=== PATIENT | male | born 1975 | race Caucasian/White ===

== ENCOUNTER → 2016-09-16 | Outpatient (REF) | payer OTHER ==
[2016-09-16 18:08] LABS: ALBUMIN 4.5 GM/DL (3.2-5.2); ALBUMIN/GLOBULIN RATIO 1.41 (1.00-1.93); ALKALINE PHOSPHATASE 93 U/L (45-117); ALT/SGPT 79 U/L (12-78); ANION GAP 9 MEQ/L (8-16); AST/SGOT 38 U/L (15-37); BILIRUBIN,DIRECT 0.2 MG/DL (0.0-0.2); BILIRUBIN,TOTAL 0.7 MG/DL (0.2-1.0); BLOOD UREA NITROGEN 10 MG/DL (7-18); CALCIUM LEVEL 9.7 MG/DL (8.5-10.1); CARBON DIOXIDE LEVEL 29 MEQ/L (21-32); CHLORIDE LEVEL 102 MEQ/L (98-107); CREATININE FOR GFR 1.01 MG/DL (0.70-1.30); GLOMERULAR FILTRATION RATE > 60.0 (>60); GLUCOSE, FASTING 105 MG/DL (70-105); SODIUM LEVEL 140 MEQ/L (136-145); TOTAL PROTEIN 7.7 GM/DL (6.4-8.2)
== END ==
LOC: M LAB REF 16:40
PROVIDERS: ATTEND Surgery
DX: J01.00 Acute maxillary sinusitis, unspecified (principal); I10 Essential (primary) hypertension

== ENCOUNTER → 2017-08-02 | Outpatient (REF) | payer OTHER ==
[2017-08-02 19:43] LABS: INFLUENZA A AMPLIFICATION NEGATIVE (NEGATIVE); INFLUENZA B AMPLIFICATION NEGATIVE (NEGATIVE)
== END ==
LOC: M SFHCLERA 15:11
DX: Z20.828 Contact with and (suspected) exposure to other viral communicable diseases (principal)

== ENCOUNTER 2020-11-19 08:13 | Emergency (ER) | payer OTHER ==
[~2020-11-19] VITALS: Ht 172.7 cm; Wt 79.6 kg
[2020-11-19] MEDS ORDERED: LISI20TA33 (08:24)
[2020-11-19] MEDS ORDERED: SIMV10TA21 (08:24)
--- NOTE | 2020-11-19 10:27 | REP ---
INDICATION: trauma, left upper anterior ribs COMPARISON: None. TECHNIQUE: Frontal view of the chest with four views of the left hemithorax. FINDINGS: Frontal view of the chest demonstrates no acute cardiopulmonary process, contusion, effusion, or pneumothorax. Multiple views of the hemithorax demonstrates no acute rib fracture/injury or pathology. IMPRESSION: Normal rib series. No obvious rib fracture or pathology. <Electronically signed by Roger Parker > 11/19/20 1024
[2020-11-19 10:52] VITALS: BP 170/100
[2020-11-19] MEDS ORDERED: NAPR-885 PO (11:08)
== END 2020-11-19 11:17 | disposition home or self-care (01) ==
LOC: M ED 08:13
DX: S20.212A Contusion of left front wall of thorax, initial encounter (principal); W01.10XA Fall on same level from slipping, tripping and stumbling with subsequent striking against unspecified object, initial encounter; Y92.89 Other specified places as the place of occurrence of the external cause; Y93.9 Activity, unspecified; Y99.0 Civilian activity done for income or pay; I10 Essential (primary) hypertension; E78.5 Hyperlipidemia, unspecified; J30.2 Other seasonal allergic rhinitis

== ENCOUNTER → 2021-08-07 | Outpatient (CLI) | payer BC, OTHER ==
[~2021-08-07] MED LIST: CAPE1TAB2 PO; GNPTAB35 PO; KETO10TAB PO; LISI20TA33; LOPE1CAP5 PO; NAPR-885 PO; ONDA8TAB8 PO; PROC10TA5 PO; SIMV10TA21; SIMV20TA22 PO
== END ==
LOC: M ONCR 12:45
PROVIDERS: ATTEND General Practice
DX: C20 Malignant neoplasm of rectum (principal); J30.89 Other allergic rhinitis; Z79.899 Other long term (current) drug therapy; Z92.21 Personal history of antineoplastic chemotherapy

== ENCOUNTER 2021-09-14 10:22 | Outpatient (RCR) | payer BC | END 2021-09-24 | LOC: M ONCR 10:22 | PROVIDERS: ATTEND General Practice | DX: C20 Malignant neoplasm of rectum (principal) ==

== ENCOUNTER 2021-10-23 09:50 | Outpatient (RCR) | payer BC | END 2021-10-24 | PROVIDERS: ATTEND General Practice | DX: C20 Malignant neoplasm of rectum (principal) ==

== ENCOUNTER 2021-11-04 09:48 | Outpatient (RCR) | payer BC | END 2021-11-24 | LOC: M ONCR 09:48 | PROVIDERS: ATTEND General Practice | DX: C20 Malignant neoplasm of rectum (principal) ==

== ENCOUNTER → 2022-05-12 | Outpatient (CLI) | payer BC | LOC: M ONCR 09:52 | PROVIDERS: ATTEND General Practice | DX: C20 Malignant neoplasm of rectum (principal); J30.2 Other seasonal allergic rhinitis; Z79.899 Other long term (current) drug therapy; Z92.21 Personal history of antineoplastic chemotherapy; Z92.3 Personal history of irradiation; Z93.3 Colostomy status ==

== ENCOUNTER → 2023-08-03 | Outpatient (CLI) | payer BC | LOC: M PLAIMG 11:27 | PROVIDERS: ATTEND Internal Medicine | DX: C20 Malignant neoplasm of rectum (principal); K59.00 Constipation, unspecified; K92.89 Other specified diseases of the digestive system ==

== ENCOUNTER → 2023-08-03 | Outpatient (CLI) | payer BC ==
[~2023-08-03] MED LIST changes: +GASTROGRAFIN SOLUTION 30ML ONE; +ISOVUE-370 76% 100ML VIAL ONE
== END ==
LOC: M PLAIMG 11:28
PROVIDERS: ATTEND Nurse Practitioner Family
DX: C20 Malignant neoplasm of rectum (principal); R91.1 Solitary pulmonary nodule
CPT/HCPCS: 71260; Q9963; Q9967

== ENCOUNTER → 2023-08-05 | Outpatient (CLI) | payer BC ==
[~2023-08-05] MED LIST changes: -GASTROGRAFIN SOLUTION 30ML ONE; -ISOVUE-370 76% 100ML VIAL ONE
== END ==
LOC: M ONCR 08:23
PROVIDERS: ATTEND General Practice
DX: C20 Malignant neoplasm of rectum (principal); Z71.2 Person consulting for explanation of examination or test findings; Z79.1 Long term (current) use of non-steroidal anti-inflammatories (NSAID); Z79.899 Other long term (current) drug therapy; Z92.21 Personal history of antineoplastic chemotherapy; Z92.3 Personal history of irradiation

== ENCOUNTER → 2023-11-01 | Outpatient (CLI) | payer BC ==
[~2023-11-01] MED LIST changes: +GASTROGRAFIN SOLUTION 30ML ONE; +ISOVUE-370 76% 100ML VIAL ONE
== END ==
LOC: M PLAIMG 07:59
PROVIDERS: ATTEND Nurse Practitioner Family
DX: C20 Malignant neoplasm of rectum (principal); K59.00 Constipation, unspecified

== ENCOUNTER → 2024-01-27 | Outpatient (CLI) | payer BC ==
[~2024-01-27] MED LIST changes: +GASTROGRAFIN SOLUTION 30ML As Ordered ONE; -GASTROGRAFIN SOLUTION 30ML ONE; +ISOVUE-370 76% 100ML VIAL As Ordered ONE; -ISOVUE-370 76% 100ML VIAL ONE; +ONDA-284 PO; -ONDA8TAB8 PO
== END ==
LOC: M RAD 10:55
PROVIDERS: ATTEND General Practice
DX: C20 Malignant neoplasm of rectum (principal); I25.10 Atherosclerotic heart disease of native coronary artery without angina pectoris
CPT/HCPCS: 71260; 74177; Q9963; Q9967

== ENCOUNTER → 2024-02-09 | Outpatient (CLI) | payer BC ==
[~2024-02-09] MED LIST changes: -GASTROGRAFIN SOLUTION 30ML As Ordered ONE; -ISOVUE-370 76% 100ML VIAL As Ordered ONE
== END ==
LOC: M ONCR 15:18
PROVIDERS: ATTEND General Practice
DX: C20 Malignant neoplasm of rectum (principal); R19.4 Change in bowel habit; Z92.21 Personal history of antineoplastic chemotherapy; Z92.3 Personal history of irradiation; J30.89 Other allergic rhinitis; Z79.899 Other long term (current) drug therapy

== ENCOUNTER → 2024-05-18 | Outpatient (CLI) | payer MEDICARE, BC ==
[~2024-05-18] MED LIST changes: +GASTROGRAFIN SOLUTION 30ML ONE; +ISOVUE-370 76% 100ML VIAL ONE
== END ==
LOC: M PLAIMG 09:22
PROVIDERS: ATTEND Nurse Practitioner Family
DX: C20 Malignant neoplasm of rectum (principal); R91.1 Solitary pulmonary nodule
CPT/HCPCS: 71260; 74177; Q9963; Q9967

== ENCOUNTER → 2024-08-07 | Outpatient (CLI) | payer BC, MEDICARE ==
[~2024-08-07] MED LIST changes: -GASTROGRAFIN SOLUTION 30ML ONE; +ISOVUE-370 76% 100ML VIAL As Ordered ONE; -ISOVUE-370 76% 100ML VIAL ONE
== END ==
LOC: M RAD 09:03
PROVIDERS: ATTEND General Practice
DX: C20 Malignant neoplasm of rectum (principal); R16.0 Hepatomegaly, not elsewhere classified; K76.0 Fatty (change of) liver, not elsewhere classified; K76.89 Other specified diseases of liver; R91.8 Other nonspecific abnormal finding of lung field
CPT/HCPCS: 71260; 74177; Q9967

== ENCOUNTER → 2024-08-14 | Outpatient (CLI) | payer BC ==
[~2024-08-14] MED LIST changes: -ISOVUE-370 76% 100ML VIAL As Ordered ONE
== END ==
LOC: M ONCR 15:13
PROVIDERS: ATTEND General Practice
DX: C20 Malignant neoplasm of rectum (principal); Z92.21 Personal history of antineoplastic chemotherapy; Z92.3 Personal history of irradiation; Z79.899 Other long term (current) drug therapy; J30.2 Other seasonal allergic rhinitis

== ENCOUNTER → 2024-11-14 | Outpatient (CLI) | payer BC ==
[~2024-11-14] MED LIST changes: +ISOVUE-370 76% 100ML VIAL ONE
== END ==
LOC: M PLAIMG 08:28
PROVIDERS: ATTEND Nurse Practitioner Family
DX: C20 Malignant neoplasm of rectum (principal); R91.1 Solitary pulmonary nodule
CPT/HCPCS: 71260; 74177; Q9967

== ENCOUNTER → 2025-02-05 | Outpatient (CLI) | payer BC, MEDICARE ==
[~2025-02-05] MED LIST changes: +AMLO1TAB25 PO; +FENO145T7 PO; +HYDR-3490 PO; +ISOVUE-370 76% 100 ML VIAL As Ordered ONE; -ISOVUE-370 76% 100ML VIAL ONE; +LISI40TA10 PO; +OMEP40CA4 PO; +OMEP40CA5 PO; +ROPI1TAB73 PO
== END ==
LOC: M RAD 16:00
PROVIDERS: ATTEND General Practice
DX: C20 Malignant neoplasm of rectum (principal)
CPT/HCPCS: 71260; 74177; Q9967

== ENCOUNTER 2025-02-11 07:39 | Day surgery (SDC) | payer BC ==
[~2025-02-11] VITALS: Ht 172.7 cm; Wt 80.7 kg
[~2025-02-11 07:39] MED LIST changes: -ISOVUE-370 76% 100 ML VIAL As Ordered ONE; +SIMETHICONE 40MG/0.6ML DROPS 30ML As Ordered ONE
[2025-02-11] MEDS ORDERED: LIDOCAINE 2% 100 MG/5 ML SDV (FOR ANES.) As Ordered ONE (08:27)
[2025-02-11 08:46] VITALS: BP 135/84; O2SAT 97
== END 2025-02-11 08:50 | disposition home or self-care (01) ==
LOC: M OPP 07:39
PROVIDERS: ATTEND Surgery
DX: K44.9 Diaphragmatic hernia without obstruction or gangrene (principal); K29.70 Gastritis, unspecified, without bleeding; R10.13 Epigastric pain; Z91.048 Other nonmedicinal substance allergy status; Z79.899 Other long term (current) drug therapy; Z85.038 Personal history of other malignant neoplasm of large intestine
CPT/HCPCS: 43239; 88305; J3010

== ENCOUNTER → 2025-02-12 | Outpatient (CLI) | payer BC ==
[~2025-02-12] MED LIST changes: -SIMETHICONE 40MG/0.6ML DROPS 30ML As Ordered ONE
== END ==
LOC: M ONCR 15:19
PROVIDERS: ATTEND General Practice
DX: Z08 Encounter for follow-up examination after completed treatment for malignant neoplasm (principal); Z85.040 Personal history of malignant carcinoid tumor of rectum; Z92.21 Personal history of antineoplastic chemotherapy; Z92.3 Personal history of irradiation